=== PATIENT | female | born 1995 | race Asian ===

== ENCOUNTER 2016-06-18 20:00 | Emergency (ER) | payer OTHER ==
[~2016-06-18] VITALS: Ht 157.5 cm; Wt 38.2 kg
[~2016-06-18 20:00] MED LIST: AMBIEN 10MG10 MG PO; NO HOME MEDICATIONS; NUVARING VAG RING VG; PROAIR HFA0.09 MG/AC IH; ULTRAM 50MG TAB50 MG PO; ZITHROMAX Z PA250 MG PO; ZOFRAN ODT4 MG PO; ZOFRAN8 MG PO
[2016-06-18 20:22] VITALS: BP 122/67
[2016-06-18 22:20] VITALS: PULSE 73; TEMP 98.7
== END 2016-06-18 22:20 | disposition home or self-care (01) ==
LOC: COL.ER 20:00
DX: G43.909 Migraine, unspecified, not intractable, without status migrainosus (principal); F17.210 Nicotine dependence, cigarettes, uncomplicated
CPT/HCPCS: J1200; J1885; J2550; J2765; J7030

== ENCOUNTER 2016-11-05 12:55 | Emergency (ER) | payer OTHER ==
[~2016-11-05] VITALS: Ht 152.4 cm; Wt 36.4 kg
[2016-11-05 13:04] VITALS: BP 105/70; TEMP 97.5
[2016-11-05 15:27] LABS: BASO % 0.3 % (0.0-2.0); EOS % 0.3 % (0-4.0); GRAN # 7.6 (1.4-6.5); GRAN % 81.1 % (42.2-75.2); HEMOGLOBIN 12.2 g/dl (12.5-16.0); LYMPH # 1.4 (1.2-3.4); LYMPH % 14.4 % (20.0-51.0); MEAN CELL VOLUME 91 fl (80.0-100.0); MEAN CORPUSCULAR HEMOGLOBIN 31 pg (27.0-31.0); MEAN CORPUSCULAR HGB CONC 34 g/dl (33.0-37.0); MEAN PLATELET VOLUME 11.1 fl (7.4-10.4); MONO # 0.3 (0.1-0.6); MONO % 3.6 % (1.7-9.3); PLATELET COUNT 223 K/mm3 (130-400); RED BLOOD COUNT 3.93 M/mm3 (4.10-5.30); REDCELL DISTRIBUTION WIDTH-CV 11.6 % (11.5-14.5); WHITE BLOOD COUNT 9.4 K/mm3 (4.8-10.8)
[2016-11-05 15:28] LABS: HEMATOCRIT 35.6 % (37.0-47.0)
[2016-11-05 15:35] LABS: ADJUSTED CALCIUM 8.8 mg/dL (8.4-10.2); ALBUMIN 3.9 gm/dL (3.5-5.0); BILIRUBIN,TOTAL 1.2 mg/dL (0.0-1.0); CALCIUM 8.7 mg/dL (8.4-10.2); CREATININE, serum 0.57 mg/dL (0.52-1.25); TOTAL PROTEIN 6.6 gm/dL (6.4-8.2)
[2016-11-05] MEDS ORDERED: ATIVAN 0.50.5 MG/TAB PO (15:47)
[2016-11-05] MEDS ORDERED: ZOFRAN ODT4 MG PO (15:47)
[2016-11-05 16:05] VITALS: PULSE 99
== END 2016-11-05 16:22 | disposition home or self-care (01) ==
LOC: COL.ER 12:55
PROVIDERS: Physician Assistant
DX: R11.2 Nausea with vomiting, unspecified (principal); F41.9 Anxiety disorder, unspecified
CPT/HCPCS: J2060; J2405; J7030

== ENCOUNTER 2016-11-10 21:21 | Emergency (ER) | payer OTHER ==
[~2016-11-10] VITALS: Ht 154.9 cm; Wt 36.8 kg
[~2016-11-10 21:21] MED LIST changes: +ATIVAN 0.50.5 MG/TAB PO
[2016-11-10 21:26] VITALS: TEMP 98.1
[2016-11-10] MEDS ORDERED: CEPHALEXIN500 M1 PO (21:31)
[2016-11-10 21:46] VITALS: BP 113/66; PULSE 88
== END 2016-11-10 21:49 | disposition home or self-care (01) ==
LOC: COL.ER 21:21
DX: R21 Rash and other nonspecific skin eruption (principal); G43.909 Migraine, unspecified, not intractable, without status migrainosus; E03.9 Hypothyroidism, unspecified; F41.9 Anxiety disorder, unspecified; F17.210 Nicotine dependence, cigarettes, uncomplicated